=== PATIENT | female | born 1970 | race Caucasian/White ===

== ENCOUNTER 2019-01-08 10:25 | Observation (INO) | payer OTHER ==
[2019-01-08] MEDS ORDERED: NEOSTIGMINE 3 MG/3 ML SYRINGE (12:25)
[2019-01-08] MEDS ORDERED: PROPOFOL 20 ML (12:25)
[2019-01-08] MEDS ORDERED: LIDOCAINE 2% (SDV) 5 ML INJ (12:25)
[2019-01-08] MEDS ORDERED: GLYCOPYRROLATE 0.4 MG INJ ×2 (12:25→12:30)
[2019-01-08] MEDS ORDERED: MEPERIDINE 100 MG INJ (12:25)
[2019-01-08] MEDS ORDERED: SUCCINYLCHOLINE CHLORIDE 100 MG/5 ML SYG IV (12:25)
[2019-01-08] MEDS ORDERED: ROCURONIUM 50 MG INJ (12:25)
[2019-01-08] MEDS ORDERED: ONDANSETRON 4 MG INJ (12:30)
[2019-01-08] MEDS ORDERED: METOCLOPRAMIDE 10 MG INJ (12:30)
[2019-01-08] MEDS ORDERED: CEFAZOLIN 1 GM INJ (12:30)
[2019-01-08] MEDS: BUPIVACAINE 0.25% (MPF) 30 ML INJ (13:52)
[2019-01-08] MEDS ORDERED: METOCLOPRAMIDE 10 MG INJ IV (14:00)
[2019-01-08] MEDS ORDERED: EPHEDrine SULFATE 50 MG/5 ML SYG IV (14:00)
[2019-01-08] MEDS ORDERED: MIDAZOLAM 1 MG/ML 2 ML INJ IV (14:00)
[2019-01-08] MEDS ORDERED: MEPERIDINE 25 MG INJ IV (14:00)
[2019-01-08] MEDS ORDERED: OXYCODONE/ACETAMINOPHEN (5/325) TAB PO ×2 (14:00)
[2019-01-08] MEDS ORDERED: HYDROmorphONE 1 MG/5 ML IV SYRINGE IV (14:00)
[2019-01-08] MEDS ORDERED: hydrALAzine 20 MG INJ IV (14:00)
[2019-01-08] MEDS ORDERED: DIPHENHYDRAMINE 50 MG INJ IV (14:00)
[2019-01-08] MEDS ORDERED: LABETALOL HCL 20MG INJ IV (14:00)
[2019-01-08] MEDS ORDERED: FENTAnyl 50 MCG/ML VIAL IV ×2 (14:00)
[2019-01-08] MEDS: HYDROmorphONE 1 MG/5 ML IV SYRINGE IV ×2 (14:29→14:50)
[2019-01-08] MEDS: HYDROCODONE/APAP (5/325) TAB PO (14:59)
[2019-01-08] MEDS: ONDANSETRON 4 MG INJ IV ×3 (15:02→23:13)
[2019-01-08] MEDS: FENTAnyl 50 MCG/ML VIAL IV ×2 (15:13→15:26)
[2019-01-08] MEDS ORDERED: HYDROCODONE/APAP (5/325) TAB PO (16:30)
[2019-01-08] MEDS: SOD CHLORIDE 0.45% 1,000 ML IV (18:13)
[2019-01-08] MEDS: morphine 2 MG INJ IV (19:43)
[2019-01-08] MEDS: ACETAMINOPHEN 325 MG TAB PO (23:13)
[2019-01-09] MEDS: HYDROCODONE/APAP (5/325) TAB PO (00:53)
[2019-01-09] MEDS: morphine 2 MG INJ IV ×4 (02:03→23:24)
[2019-01-09] MEDS: ONDANSETRON 4 MG INJ IV ×2 (05:33→23:24)
[2019-01-09] MEDS: SOD CHLORIDE 0.45% 1,000 ML IV ×2 (06:44→18:13)
[2019-01-09] MEDS: TOLTERODINE (SR) 2 MG CAP PO ×2 (09:00→20:45)
[2019-01-09] MEDS: METOCLOPRAMIDE 10 MG INJ IV ×2 (11:00→17:31)
[2019-01-09] MEDS: ATORVASTATIN 10 MG TAB PO (20:45)
[2019-01-09] MEDS ORDERED: SPECIAL NON-STANDARD MEDICATION PO (21:00)
[2019-01-09] MEDS ORDERED: ATORVASTATIN 10 MG TAB PO (21:00)
[2019-01-10 05:19] LABS: ADD MAN DIFF? NO
[2019-01-10 05:25] LABS: BASOPHILS % 0.2 % (0.0-2.0); EOSINOPHILS # 0.1 10^3/ul (0.0-0.5); EOSINOPHILS % 0.5 % (0.0-7.0); HEMATOCRIT 39.8 % (37.0-47.0); HEMOGLOBIN 13.3 g/dl (12.0-16.0); LYMPHOCYTES % 23.3 % (15.0-51.0); MEAN CORPUSCULAR HEMOGLOBIN 31.8 pg (29.0-33.0); MEAN CORPUSCULAR HGB CONC 33.4 g/dl (32.0-37.0); MEAN CORPUSCULAR VOLUME 95.2 fl (82.0-101.0); MEAN PLATELET VOLUME 9.6 fl (7.4-10.4); MONOCYTE # 1.1 10^3/ul (0.3-0.9); MONOCYTES % 8.3 % (0.0-11.0); NEUTROPHIL # 8.6 10^3/ul (1.6-7.5); NEUTROPHILS % 67.3 % (39.0-77.0); PLATELET COUNT 228 10^3/UL (140-415); RED BLOOD COUNT 4.18 10^6/ul (4.20-5.40); RED CELL DISTRIBUTION WIDTH 12.7 % (11.5-14.5)
[2019-01-10 05:25] LABS: WHITE BLOOD COUNT 12.9 10^3/ul (4.8-10.8)
[2019-01-10 05:50] LABS: ALANINE AMINOTRANSFERASE 77 IU/L (13-69); ALBUMIN 3.9 g/dl (3.3-4.9); ALBUMIN/GLOBULIN RATIO 1.21; ALKALINE PHOSPHATASE 67 IU/L (42-121); ANION GAP 10 (5-13); ASPARTATE AMINO TRANSFERASE 56 IU/L (15-46); BILIRUBIN,INDIRECT 0.8 mg/dl (0-1.1); BILIRUBIN,TOTAL 0.8 mg/dl (0.2-1.3); BLOOD UREA NITROGEN 12 mg/dl (7-20); CALCIUM 9.2 mg/dl (8.4-10.2); CARBON DIOXIDE 31 mmol/L (21-31); CHLORIDE 104 mmol/L (97-110); CREATININE 0.75 mg/dl (0.44-1.00); Estimated GFR > 60 mL/min (>60); GLUCOSE 122 mg/dl (70-220); SODIUM 145 mmol/L (135-144); TOTAL PROTEIN 7.1 g/dl (6.1-8.1)
[2019-01-10] MEDS: SOD CHLORIDE 0.45% 1,000 ML IV ×2 (06:00→08:07)
[2019-01-10] MEDS: TOLTERODINE (SR) 2 MG CAP PO (09:29)
[2019-01-10] MEDS: HYDROCODONE/APAP (5/325) TAB PO (14:45)
== END 2019-01-10 17:30 | disposition home or self-care (01) ==
LOC: SDS 10:25 → REC 16:05 → MS1 17:10
DX: K80.20 Calculus of gallbladder without cholecystitis without obstruction (principal)
CPT/HCPCS: 47562; 80053; 85025; 88304; 99217